=== PATIENT | male | born 1935 | race Hispanic/Latino ===

== ENCOUNTER 2018-02-11 16:58 | Observation (INO) | payer OTHER ==
[2018-02-11 17:59] LABS: BASOPHILS % (AUTO) 0.9 % (0.0-5.0); HEMATOCRIT 41.2 % (42-54); LYMPHOCYTES % (AUTO) 24.8 % (21.0-51.0); MEAN CORPUSCULAR HEMOGLOBIN 28.8 pg (27.0-33.0); MEAN CORPUSCULAR VOLUME 84.5 fL (79-99); MONOCYTES % (AUTO) 8.5 % (3.0-13.0); NEUTROPHILS % (AUTO) 58.8 % (40.0-77.0); PLATELET COUNT (AUTO) 192 K/uL (130-400); RED BLOOD CELL COUNT(AUTO) 4.88 MIL/uL (4.50-6.20); RED CELL DISTRIBUTION WIDTH 13.3 % (11.0-15.5); WHITE BLOOD COUNT (AUTO) 6.4 K/uL (4.8-10.8)
[2018-02-11 18:11] LABS: PARTIAL THROMBOPLASTIN TIME 32.3 SEC (26.3-35.5); PROTHROMBIN TIME 10.5 SEC (9.6-11.6)
[2018-02-11 18:12] LABS: CREATININE 1.1 mg/dL (0.5-1.5)
[2018-02-11 18:27] LABS: B-TYPE NATRIURETIC PEPTIDE 86 pg/mL (0-100)
[2018-02-11 18:38] LABS: ALBUMIN 3.7 g/dL (3.5-5.0); BILIRUBIN,TOTAL 0.3 mg/dL (0.2-1.0); TOTAL PROTEIN, SERUM 7.6 g/dL (6.0-8.3)
[2018-02-11] MEDS ORDERED: ONDANSETRON HCL 4 MG/2 ML VIAL IV PRN (22:15)
[2018-02-11] MEDS ORDERED: MORPHINE SULFATE 4 MG/1ML SYG IV PRN (22:15)
[2018-02-11] MEDS ORDERED: ACETAMINOPHEN 325 MG TAB PO PRN (22:15)
[2018-02-11 23:00] VITALS: BP 107/61
[2018-02-12] MEDS: NITROGLYCERIN 1GM/1 INCH PACKET TD SCH ×2 (00:31→06:15)
[2018-02-12 04:00] VITALS: BP 91/57
[2018-02-12 04:29] LABS: BASOPHILS % (AUTO) 0.9 % (0.0-5.0); EOSINOPHILS % (AUTO) 5.5 % (0.0-8.0); HEMATOCRIT 38.6 % (42-54); LYMPHOCYTES % (AUTO) 20.6 % (21.0-51.0); MEAN CORPUSCULAR HEMOGLOBIN 28.1 pg (27.0-33.0); MEAN CORPUSCULAR HGB CONC 33.4 g/dL (32.0-36.0); MEAN CORPUSCULAR VOLUME 84.2 fL (79-99); MONOCYTES % (AUTO) 11.1 % (3.0-13.0); NEUTROPHILS % (AUTO) 61.9 % (40.0-77.0); NUCLEATED RED BLOOD CELLS 0.1 % (0.0-0.19); PLATELET COUNT (AUTO) 167 K/uL (130-400); RED BLOOD CELL COUNT(AUTO) 4.59 MIL/uL (4.50-6.20); RED CELL DISTRIBUTION WIDTH 12.9 % (11.0-15.5)
[2018-02-12 04:44] LABS: ALANINE AMINOTRANSFERASE 38 U/L (12-78); ALBUMIN 3.2 g/dL (3.5-5.0); ASPARTATE AMINOTRANSFERASE 27 U/L (10-37); BILIRUBIN,TOTAL 0.5 mg/dL (0.2-1.0); CARBON DIOXIDE 28 mmol/L (21-32); CHLORIDE 103 mmol/L (101-111); CREATININE 1.2 mg/dL (0.5-1.5); GLOMERULAR FILTR. RATE CALC 62 mL/min (>60); GLUCOSE,RANDOM 195 mg/dL (70-105); POTASSIUM 4.2 mmol/L (3.5-5.1); SODIUM SERUM 138 mmol/L (136-145); TOTAL PROTEIN, SERUM 6.9 g/dL (6.0-8.3); UREA NITROGEN, BLOOD 20 mg/dL (7-18)
[2018-02-12 04:56] LABS: CRP QUANTITATIVE < 2.00 mg/L (0.00-9.0)
[2018-02-12] MEDS ORDERED: NITROGLYCERIN 1GM/1 INCH PACKET TD SCH (06:51)
[2018-02-12 07:14] VITALS: BP 116/59
[2018-02-12] MEDS: FAMOTIDINE 20MG TAB 20 MG TAB PO SCH ×2 (09:26→22:03)
[2018-02-12] MEDS: ASPIRIN 325 MG TABLET PO SCH (09:26)
[2018-02-12] MEDS: METOPROLOL TARTRATE 25 MG TAB PO SCH ×2 (09:26→22:03)
[2018-02-12] MEDS: ENOXAPARIN SODIUM 30 MG/0.3 ML SQ SCH (09:27)
[2018-02-12 11:00] VITALS: BP 104/62
[2018-02-12] MEDS: INSULIN HUMULIN R 100 UNIT/ML 3ML SQ SCH ×2 (11:57→22:04)
[2018-02-12] MEDS ORDERED: AEC81 PO (12:29)
[2018-02-12] MEDS ORDERED: PANT40TA25 PO (12:29)
[2018-02-12] MEDS ORDERED: LEVE500T19 PO (12:29)
[2018-02-12] MEDS ORDERED: LISI2.5T2 PO (12:29)
[2018-02-12 16:28] VITALS: BP 139/73
[2018-02-12 19:57] VITALS: BP 117/67
[2018-02-12] MEDS ORDERED: ATORVASTATIN CALCIUM 40 MG TABLET PO SCH (21:00)
[2018-02-13] VITALS: BP 129/69
[2018-02-13 04:18] VITALS: BP 126/60
[2018-02-13] MEDS: INSULIN HUMULIN R 100 UNIT/ML 3ML SQ SCH ×2 (06:36→11:30)
[2018-02-13 07:38] VITALS: BP 134/82
[2018-02-13] MEDS: METOPROLOL TARTRATE 25 MG TAB PO SCH (09:14)
[2018-02-13] MEDS: FAMOTIDINE 20MG TAB 20 MG TAB PO SCH (09:14)
[2018-02-13] MEDS: ASPIRIN 325 MG TABLET PO SCH (09:14)
[2018-02-13] MEDS: ENOXAPARIN SODIUM 30 MG/0.3 ML SQ SCH (09:16)
[2018-02-13] MEDS ORDERED: METO25TA6 PO (10:09)
[2018-02-13 11:34] VITALS: BP 134/74
[2018-02-13] MEDS ORDERED: METO-391 PO (11:51)
== END 2018-02-13 14:05 | disposition home or self-care (01) ==
LOC: EDH 16:58 → EDHIP 21:00 → 2DH 22:03
PROVIDERS: ADMIT Internal Medicine; ATTEND Internal Medicine
DX: R00.2 Palpitations (principal); I35.0 Nonrheumatic aortic (valve) stenosis; I25.10 Atherosclerotic heart disease of native coronary artery without angina pectoris; E11.59 Type 2 diabetes mellitus with other circulatory complications; I45.10 Unspecified right bundle-branch block; I10 Essential (primary) hypertension; J42 Unspecified chronic bronchitis; Z86.73 Personal history of transient ischemic attack (TIA), and cerebral infarction without residual deficits; Z95.2 Presence of prosthetic heart valve; Z98.61 Coronary angioplasty status; Z79.01 Long term (current) use of anticoagulants
CPT/HCPCS: 36415 ×3; 71045; 80053 ×2; 82550; 82948 ×6; 83874; 83880; 84443; 84484 ×3; 85025 ×2; 85610; 85730; 86140; 93005; 93306; 96372 ×2; 99284; A4600; G0378 ×41; J1650 ×2; J1815 ×2